=== PATIENT | male | born 1950 | race Caucasian/White ===

== ENCOUNTER → 2018-04-07 10:03 | Outpatient (CLI) | payer MEDICARE, OTHER, SELFPAY ==
[2018-04-07 11:40] LABS: Alanine Aminotransferase 48 IU/L (21-72); Albumin Globulin Ratio 1.5 (1.0-2.8); Alkaline Phosphatase 34 U/L (38-126); Aspartate Aminotransferase 38 IU/L (17-59); Bilirubin Total 0.4 mg/dL (0.2-1.3); Blood Urea Nitrogen 17 mg/dL (9-20); Calcium 9.2 mg/dL (8.4-10.2); Carbon Dioxide 27 mmol/L (22-32); Chloride 102 mmol/L (98-107); Cholesterol 124 mg/dL (140-199); Estimated Glomerular Filt Rate > 60.0 mL/min (>60); Globulin 2.6 g/dL (1.7-4.1); Glucose 95 mg/dL (80-110); HDL Cholesterol 25 mg/dL (40-60); HEMOLYSIS < 15 (0-50); LDL Cholesterol Calculated 71 mg/dL (<100); Potassium 3.8 mmol/L (3.4-5.1); Sodium 140 mmol/L (137-145); Total Protein 6.6 g/dL (6.3-8.2); Triglycerides 139 mg/dL (35-150)
[2018-04-07 12:27] LABS: Prostate Specific Antigen 11.5 ng/mL (0.10-4.00)
== END ==
PROVIDERS: Urology; PCP Family Medicine; Visit Provider Family Medicine
DX: R97.20 Elevated prostate specific antigen [PSA] (principal); E78.2 Mixed hyperlipidemia; I10 Essential (primary) hypertension
CPT/HCPCS: 36415; 80053; 80061; 84153

== ENCOUNTER 2018-06-09 06:15 | Day surgery (SDC) | payer MEDICARE, OTHER, SELFPAY ==
[2018-06-09] MEDS: PROPARACAINE 0.5% OPHTH SOL 2 DROPS EYE-OP (07:18)
[2018-06-09 07:23] VITALS: BP 136/79; PULSE 71; RESP 16; TEMP 36.2; O2SAT 95; BMI 29.4
--- NOTE | 2018-06-09 07:29 | PM.PREOP ---
Pre-operative Note Interval Note History & Physical reviewed/Exam performed by Physician: Yes Changes to H&P: No
[2018-06-09] MEDS: CATARACT EYE COMPOUND (10 DROPS/SYRINGE) 3 DROPS EYE-OP (07:38)
--- NOTE | 2018-06-09 07:53 | SUR.OPER ---
Supine on eye stretcher, head on extension cradle secured with tape. Arms tucked at sides with blanket. Pillow under knees.
[2018-06-09] MEDS: MOXIFLOXACIN OPHTH DROPS 3 ML BOTTLE 2 DROPS INJ ×2 (08:02→08:03)
[2018-06-09] MEDS: CHONDROIDTIN/SOD HYALURONATE 1.05 ML SYRINGE INTRAOCULA (08:04)
[2018-06-09] MEDS: BALANCED SALT IRRIG SOLN NO.2 15 ML IRR (08:04)
[2018-06-09] MEDS: TETRACAINE 0.5% OPHTH DROPS 4 ML 2 DROPS EYE-LEFT (08:06)
[2018-06-09] MEDS: BALANCED SALT IRRIG SOLN NO.2 500 ML, EPINEPHrine 1 MG IRR (08:06)
[2018-06-09] MEDS: LIDOCAINE 2% INJ SDV 0.5 ML TOP (08:07)
--- NOTE | 2018-06-09 08:24 | PM.OP.1 ---
Procedure & Clinicians Procedure: Cataract extraction with intraocular lens implant, left Same procedure as scheduled: Yes Indications: Visually significant nuclear sclerosis, left Surgeon: Lm Kaur Click Yes if Unassisted: Yes Anesthesia Type: MAC +/- Operative Notes Procedure in detail: The patient was brought to the operating suite. The correct patient, surgical site and lens were confirmed. 0.5 % tetracaine drops were placed in the left eye. The patient was prepped and draped in the typical sterile manner. A lid speculum was placed in the eye. 2% lidocaine was placed on the eye. A paracentesis port was created with a side-port blade. 0.1 mL of 1% preservative free lidocaine with phenylephrine was injected into the anterior chamber. Viscoelastic was injected into the anterior chamber. A 2.6mm keratome was used to create a clear corneal temporal incision. Cystotome and Utrata forceps were used to create a continuous curvilinear capsulorrhexis. Balanced salt solution was used to hydrodissect the nucleus. Phacoemulsification was used to remove the lens. The capsular bag was inflated with viscoelastic. A Juarez ZBOO +24.5D lens was inserted into the capsule. Viscoelastic was removed and the wound hydrated. The wound was found to be leak free and the eye was assessed to be at normal physiologic pressure. 0.1mL Vigamox was injected into the anterior chamber. The lid speculum was removed and the patient left the operating room in excellent condition. Complications: none Condition: stable Disposition: same day surgery
[2018-06-09 08:29] VITALS: BP 127/75; PULSE 78; RESP 15; TEMP 36.4; O2SAT 95
[2018-06-09] MEDS: PHENYLEPHRINE/LIDOCAINE VIAL (OR) 0.2 ML EYE-OP (10:45)
== END 2018-06-09 08:39 | disposition home or self-care (01) ==
LOC: OR 06:16
PROVIDERS: PCP Family Medicine; Visit Provider Ophthalmology
DX: H25.12 Age-related nuclear cataract, left eye (principal); I10 Essential (primary) hypertension; E78.5 Hyperlipidemia, unspecified
CPT/HCPCS: J0171; J2250; J3010

== ENCOUNTER → 2019-09-19 10:10 | Outpatient (CLI) | payer MEDICARE, OTHER, SELFPAY ==
[2019-09-19 12:43] LABS: Alanine Aminotransferase 61 IU/L (<50); Albumin 4.4 g/dL (3.5-5.0); Albumin Globulin Ratio 1.6 (1.0-2.8); Alkaline Phosphatase 50 U/L (38-126); Aspartate Aminotransferase 50 IU/L (17-59); BUN Creatinine Ratio 22.3 (6-22); Bilirubin Total 0.9 mg/dL (0.2-1.3); Blood Urea Nitrogen 21 mg/dL (9-20); Calcium 10.1 mg/dL (8.4-10.2); Carbon Dioxide 28 mmol/L (22-32); Chloride 101 mmol/L (98-107); Cholesterol 144 mg/dL (140-199); Estimated Glomerular Filt Rate > 60.0 mL/min (>60); Globulin 2.7 g/dL (1.7-4.1); Glucose 84 mg/dL (80-110); HDL Cholesterol 39 mg/dL (40-60); HEMOLYSIS < 15 (0-50); LDL Cholesterol Calculated 68 mg/dL (<100); Sodium 138 mmol/L (137-145); Total Protein 7.1 g/dL (6.3-8.2); Triglycerides 186 mg/dL (35-150)
[2019-09-19 13:08] LABS: Prostate Specific Antigen 7.85 ng/mL (0.10-4.00)
[2019-09-20 10:08] LABS: Fecal Immunochemical Test Positive (Negative)
== END ==
PROVIDERS: PCP Family Medicine; Referring Provider Family Medicine; Visit Provider Family Medicine
DX: Z12.11 Encounter for screening for malignant neoplasm of colon (principal); I10 Essential (primary) hypertension; E78.2 Mixed hyperlipidemia; N42.31 Prostatic intraepithelial neoplasia
CPT/HCPCS: 36415; 80053; 80061; 82274; 84153

== ENCOUNTER → 2019-10-09 11:11 | Outpatient (CLI) | payer MEDICARE, OTHER, SELFPAY ==
[2019-10-11 06:07] LABS: COVID19 Sendout Not Detected (Not Detect)
== END ==
PROVIDERS: PCP Family Medicine; Visit Provider Physician Assistant
DX: Z11.59 Encounter for screening for other viral diseases (principal)
CPT/HCPCS: 87635

== ENCOUNTER 2019-10-12 06:32 | Day surgery (SDC) | payer MEDICARE, OTHER, SELFPAY ==
[2019-10-12] VITALS (7 sets, daily range): BP systolic 106–145; BP diastolic 61–73; PULSE 70–87; RESP 8–21; TEMP 36–37; O2SAT 94–97; BMI 28.3
--- NOTE | 2019-10-12 | PATH_ITS ---
[facility] Accession Number: [id number] . 01 Material submitted: . colon - COLON POLYP ASCENDING . 01 Clinical history: . SDC . 02 Diagnosis: Ascending Colon Polyp, Polypectomy: Vegetable material. No tissue identified. MRV 10/17/2019 1014 Local . 02 Electronically signed: . Frank Gomez MD, PhD, Pathologist NPI- [id number] . 01 Gross description: . Received in formalin, labeled colon polyp ascending colon, are multiple sheikh fragments of soft tissue admixed with vegetative material measuring 2.5 x 1.0 x 0.2 cm in aggregate. The specimen is filtered and entirely submitted in cassette A1. ([id number]) /V 10/13/2019 1453 Local . 02 Pathologist provided ICD-10: K63.5 . 02 CPT . 049328 Performed at: 01 [facility] [address] [facility], [place], [place] [id number] MD Neal Mejia MD Phone: [phone] Performed at: [facility] [address] [place], [place] [id number] MD Alejandra Smith MD Phone: [phone]
--- NOTE | 2019-10-12 07:49 | PM.PREOP ---
Pre-operative Note COVID-19 COVID-19 status: Negative Result date/Date tested (Pos, Neg/Pending): 10/09/19 Interval Note History & Physical reviewed/Exam performed by Physician: Yes Changes to H&P: No ASA Class (for procedural sedation): III
[2019-10-12] MEDS: LACTATED RINGERS 1,000 ML 200 ML IV (07:55)
[2019-10-12] MEDS: fentaNYL 250 MCG/5 ML INJ IV ×3 (07:57→08:02)
[2019-10-12] MEDS: MIDAZOLAM 5 MG/5 ML VIAL IV ×2 (07:57→08:02)
--- NOTE | 2019-10-12 08:23 | PM.OP.ENDO ---
Operative Date/Time/Diagnoses Date of procedure: 10/12/19 Time of procedure: 08:23 Pre-op diagnosis: Positive fit test Post-op diagnosis: same (Diverticulosis and a polyp in the ascending colon) Procedure & Clinicians Study performed: Colonoscopy with hot snare polypectomy Same procedure as scheduled: Yes Indications: Positive fit test. Overdue for screening colonoscopy. Surgeon: Ahmet Pimentel Procedure Notes SCOAP/Timeout: Perform Procedure in detail: The patient was placed in the left lateral decubitus position and underwent IV sedation directed by the surgeon consisting of fentanyl and Versed. Digital exam was unremarkable. His prostate is not palpable. The scope was inserted and advanced through the rectum into the sigmoid, descending, transverse, and ascending colon. Patient had extensive sigmoid diverticulosis.. The cecum was reached identified by the ileocecal valve and the appendiceal opening. The ileocecal valve was briefly cannulated. The terminal ileum was normal in appearance. The scope was gradually brought out. A single polyp was found in the ascending colon near the cecum. This was removed with a hot snare. No other Polyps were found. The scope ultimately was retroflexed in the rectum. The appearance was normal. The scope was removed and the patient tolerated the procedure well. Prep was adequate Scope withdrawal time: 12 minutes(14.5 total) Sedation minutes: 24 Findings: diverticulosis and polyp Specimen(s): other (Polyp) Complications: none Post-procedure Recommendations: Colonscopy in 5 years Follow up: as needed Disposition: PACU
--- NOTE | 2019-10-12 08:45 | SUR.PHASEI ---
Pt arrived diaphoretic, slow to wake up, When awake, pt stated he sweats a lot, Pt covered with 2 blankets, one removed removed
== END 2019-10-12 09:29 | disposition home or self-care (01) ==
PROVIDERS: PCP Family Medicine; Referring Provider Specialist; Visit Provider Specialist
PROC: 0DJD8ZZ Inspection of Lower Intestinal Tract, Via Natural or Artificial Opening Endoscopic (ICD-10-PCS; CPT 45378; principal; 2019-10-12 07:45)
DX: R19.5 Other fecal abnormalities (principal); K57.30 Diverticulosis of large intestine without perforation or abscess without bleeding; K63.5 Polyp of colon
CPT/HCPCS: 45385; 99152; J2250; J3010

== ENCOUNTER → 2020-10-03 10:36 | Outpatient (CLI) | payer MEDICARE, OTHER, SELFPAY ==
[2020-10-03 11:40] LABS: Add Manual Diff / Slide Review NO; Basophils Absolute Auto 0 /uL (0-100); Basophils Percent Auto 0.5 % (0-2); Eosinophils Absolute Auto 100 /uL (0-450); Eosinophils Percent Auto 1.1 % (2-4); Hematocrit 45.2 % (41-53); Hemoglobin 15.4 g/dL (13.5-17.5); Lymphocytes Absolute Auto 2100 /uL (1100-4500); Lymphocytes Percent Auto 35.6 % (25-40); Mean Corpuscular Hemoglobin 31.2 PG (26-34); Mean Corpuscular Volume 91.7 fL (80-100); Monocytes Absolute Auto 700 /uL (0-900); Neutrophils Absolute Auto 3100 /uL (1500-7000); Neutrophils Percent Auto 51.8 % (50-75); Platelet Count 207 X10^3/uL (150-400); Red Blood Cell Count 4.92 X10^6/uL (4.5-5.9); Red Cell Distribution Width 13.1 % (11.6-14.8); White Blood Cell Count 5.9 X10^3/uL (4.5-11.0)
[2020-10-03 12:22] LABS: Alanine Aminotransferase 50 IU/L (<50); Albumin 4.3 g/dL (3.5-5.0); Albumin Globulin Ratio 1.5 (1.0-2.8); Alkaline Phosphatase 41 U/L (38-126); Aspartate Aminotransferase 48 IU/L (17-59); BUN Creatinine Ratio 21.3 (6-22); Bilirubin Total 0.7 mg/dL (0.2-1.3); Blood Urea Nitrogen 20 mg/dL (9-20); Calcium 10.1 mg/dL (8.4-10.2); Carbon Dioxide 25 mmol/L (22-32); Chloride 105 mmol/L (98-107); Cholesterol 164 mg/dL (140-199); Estimated Glomerular Filt Rate > 60.0 mL/min (>60); Globulin 2.8 g/dL (1.7-4.1); Glucose 92 mg/dL (80-110); HDL Cholesterol 40 mg/dL (40-60); HEMOLYSIS < 15 (0-50); LDL Cholesterol Calculated 86 mg/dL (<100); Potassium 3.9 mmol/L (3.4-5.1); Sodium 140 mmol/L (137-145); Total Protein 7.1 g/dL (6.3-8.2); Triglycerides 189 mg/dL (35-150)
[2020-10-04 09:43] LABS: PSA Free % 31.3 % (.); PSA, Total 11.5 ng/mL (0.0-4.0)
== END ==
PROVIDERS: Urology; PCP Family Medicine; Referring Provider Family Medicine; Visit Provider Family Medicine
DX: R97.20 Elevated prostate specific antigen [PSA] (principal); I10 Essential (primary) hypertension; E78.2 Mixed hyperlipidemia; N42.31 Prostatic intraepithelial neoplasia
CPT/HCPCS: 36415; 80053; 80061; 84153; 84154; 85025